=== PATIENT | male | born 1955 | race Caucasian/White ===

== ENCOUNTER 2023-06-04 05:46 | Inpatient (IN) | payer MEDICARE, SELFPAY ==
[2023-05-30 16:03] LABS: BASOPHILS % (AUTO) 0.3 % (0-1); EOSINOPHILS # (AUTO) 0.1 X10'3 (0-0.9); EOSINOPHILS % (AUTO) 1.2 % (0-6); LYMPHOCYTES # (AUTO) 0.7 X10'3 (1.1-4.8); LYMPHOCYTES % (AUTO) 9.7 % (21-51); MEAN CORPUSCULAR HEMOGLOBIN 30.9 PG (27.0-31.0); MEAN CORPUSCULAR HGB CONC 33.7 g/dL (33.0-36.5); MEAN CORPUSCULAR VOLUME 91.8 FL (78-98); MEAN PLATELET VOLUME 7.2 FL (7.4-10.4); MONOCYTES # (AUTO) 0.5 X10'3 (0-0.9); MONOCYTES % (AUTO) 6.9 % (2-12); NEUTROPHILS # (AUTO) 5.6 X10'3 (1.8-7.7); NEUTROPHILS % (AUTO) 81.9 % (42-75); PRE OP HEMATOCRIT 46.7 % (42.0-52.0); PRE OP HEMOGLOBIN 15.7 g/dL (14.0-17.9); PRE OP PLATELET COUNT 227 X10'3 (140-440); PRE OP WHITE BLOOD COUNT 6.8 10'3 (4.8-10.8); RED BLOOD COUNT 5.09 X10'6 (4.70-6.10); RED CELL DISTRIBUTION WIDTH 13.2 % (11.5-14.5)
[2023-05-30 16:17] LABS: ALBUMIN 3.6 G/DL (3.4-5.0); ALKALINE PHOSPHATASE 69 IU/L (46-116); BLOOD UREA NITROGEN 20 MG/DL (7-18); BUN/CREATININE RATIO 19.4 (10.0-20.0); CALCIUM 8.8 MG/DL (8.5-10.1); CHLORIDE 105 MMOL/L (99-107); CREATININE 1.03 MG/DL (0.60-1.10); PRE OP ALT 34 U/L (30-65); PRE OP ANION GAP 8 (8-16); PRE OP AST 15 U/L (10-37); PRE OP BILIRUB, TOTAL 0.3 MG/DL (0.0-1.0); PRE OP GLUCOSE 93 MG/DL (70-104); PRE OP POTASSIUM 3.8 MMOL/L (3.4-5.1); PRE OP SODIUM 140 MMOL/L (135-145); TOTAL CARBON DIOXIDE 27.5 MMOL/L (24-32); TOTAL PROTEIN 7.1 G/DL (6.4-8.2); eGFR 72 ML/MIN
[2023-06-04] VITALS (17 sets, daily range): BP systolic 105–141; BP diastolic 72–88; PULSE 53–122; RESP 12–21; TEMP 96.9–98.2; O2SAT 88–98
[~2023-06-04] VITALS: Ht 180.3 cm; Wt 95.3 kg
[~2023-06-04 05:46] MED LIST: DICL75TA5 PO; FLO0.4C PO; LISI1TAB53 PO; PANT-47 PO; ROSU10TA28 PO
[2023-06-04] MEDS: famotidine 20mg tablet PO ONE (06:19)
[2023-06-04] MEDS: ringers solution, lacted 1,000 ML IV SCH ×2 (06:19→11:09)
[2023-06-04] MEDS: vancomycin 1,500 MG in NS 300ml IV soln IV ONE (06:20)
[2023-06-04] MEDS: cefazolin 2gm/D5W 100mL 100 ML IV ONE (06:20)
[2023-06-04] MEDS ORDERED: ketorolac trometh. 30mg/ml inj. ONE (07:10)
[2023-06-04] MEDS ORDERED: MIDAZolam 5mg/ml 2ml vial ONE (07:13)
[2023-06-04] MEDS ORDERED: fentaNYL/PF 50MCG/1 ML 2ML syringe ONE ×2 (07:13→08:48)
[2023-06-04] MEDS ORDERED: dexamethasone sod phosphate 4mg/ml inj. ONE (07:14)
[2023-06-04] MEDS ORDERED: ROPIVAcaine 0.5% (5mg/ml) 30ml vial ONE (07:14)
[2023-06-04] MEDS ORDERED: propofol inj 20 ML IV ONE (07:14)
[2023-06-04] MEDS ORDERED: acetaminophen 1,000mg/100ml IV 100 ML IV ONE (07:14)
[2023-06-04] MEDS ORDERED: ondansetron/PF 4mg/2ml inj ONE (07:14)
[2023-06-04] MEDS ORDERED: LIDOcaine 2% (20mg/ml) 5ml vial ONE (07:14)
[2023-06-04] MEDS ORDERED: desflurane 240ml liquid inh. IH ONE (07:25)
[2023-06-04] MEDS ORDERED: ePHEDrine 50MG/ML INJ. ONE (08:03)
[2023-06-04] MEDS: ROPIVAcaine 0.5% (5mg/ml) 30ml vial ONE (08:13)
[2023-06-04] MEDS ORDERED: enalaprilat dihydrate 2.5mg/2ml vial IV PRN (08:25)
[2023-06-04] MEDS ORDERED: morphine 2 MG/ML inj. syringe IV PRN (08:25)
[2023-06-04] MEDS ORDERED: fentaNYL/PF 50MCG/1 ML 2ML syringe IV PRN ×2 (08:25)
[2023-06-04] MEDS ORDERED: ondansetron/PF 4mg/2ml inj IV PRN ×2 (08:25→09:40)
[2023-06-04] MEDS ORDERED: hydrALAZINE 20mg/ml inj. IV PRN (08:25)
[2023-06-04] MEDS ORDERED: ROPIVAcaine 0.2% (10 MG/5 ML) BOLUS INJECTION INTERSCALE PRN (08:25)
[2023-06-04] MEDS ORDERED: morphine 4 MG/ML inj SYRINge IV PRN (08:25)
[2023-06-04] MEDS ORDERED: HYDROmorphone 1 mg/ml syringe IV PRN (09:40)
[2023-06-04] MEDS ORDERED: acetaminophen 325mg tablet PO PRN (09:40)
[2023-06-04] MEDS ORDERED: diphenhydrAMINE 25mg capsule PO PRN ×2 (09:40)
[2023-06-04] MEDS ORDERED: HYDROmorphone inj. 0.5 MG/0.5 ML DISP.SYRIN IV PRN (09:40)
[2023-06-04] MEDS ORDERED: oxyCODONE IR 5mg (immed. release) tablet PO PRN (09:40)
[2023-06-04] MEDS ORDERED: magnesium hydroxide 30ml (MOM) UD suspension PO PRN (09:40)
[2023-06-04] MEDS ORDERED: bisacodyl 10mg suppository rectal RC PRN (09:40)
[2023-06-04] MEDS: ROPIVAcaine 0.2%/PF PUMP/bolus 545 ML INTERSCALE SCH (10:05)
[2023-06-04] MEDS: tranexamic acid 650mg tablet PO ONE (11:08)
[2023-06-04] MEDS: potassium cl 20mEq in 1/2 NS 1,000 ML IV SCH (11:09)
[2023-06-04] MEDS ORDERED: acetaminophen 325mg tablet PO SCH (14:00)
[2023-06-04] MEDS: ceFAZolin/D5W- 1GM premix 50 ML IV SCH (15:45)
[2023-06-04] MEDS ORDERED: non-formulary drug (Diclofenac Sodium 1 TAB) PO SCH (20:00)
[2023-06-04] MEDS: vancomycin/NS 1 GM ADD-VANTAGE 250 ML IV SCH (20:44)
[2023-06-04] MEDS: sennosides 8.6mg tablet PO SCH (20:44)
[2023-06-04] MEDS: atorvastatin 20mg tablet PO SCH (20:44)
[2023-06-05] VITALS: BP 135/75; PULSE 78; RESP 18; TEMP 97.7; O2SAT 96
[2023-06-05 06:00] VITALS: BP_SYST 156; PULSE 74; RESP 18; TEMP 98.8; O2SAT 95
[2023-06-05 06:23] LABS: BASOPHILS % (AUTO) 0.1 % (0-1); EOSINOPHILS % (AUTO) 0.2 % (0-6); HEMATOCRIT 43.1 % (42.0-52.0); HEMOGLOBIN 14.5 g/dl (14.0-17.9); LYMPHOCYTES # (AUTO) 0.7 X10'3 (1.1-4.8); LYMPHOCYTES % (AUTO) 5.8 % (21-51); MEAN CORPUSCULAR HEMOGLOBIN 30.8 PG (27.0-31.0); MEAN CORPUSCULAR HGB CONC 33.6 g/dL (33.0-36.5); MEAN CORPUSCULAR VOLUME 91.7 FL (78-98); MEAN PLATELET VOLUME 7.4 FL (7.4-10.4); MONOCYTES % (AUTO) 8.5 % (2-12); NEUTROPHILS # (AUTO) 9.7 X10'3 (1.8-7.7); NEUTROPHILS % (AUTO) 85.4 % (42-75); PLATELET COUNT 244 X10'3 (140-440); RED CELL DISTRIBUTION WIDTH 13.5 % (11.5-14.5); WHITE BLOOD COUNT 11.3 X10'3 (4.5-11.0)
[2023-06-05] MEDS: oxyCODONE IR 5mg (immed. release) tablet PO PRN (06:26)
[2023-06-05 06:38] LABS: ANION GAP 7 (8-16); CHLORIDE 102 MMOL/L (99-107); POTASSIUM 4.1 MMOL/L (3.5-5.1); SODIUM 135 MMOL/L (135-145); TOTAL CARBON DIOXIDE 26.1 MMOL/L (24-32)
[2023-06-05 08:00] VITALS: RESP 16; O2SAT 95
[2023-06-05] MEDS: aspirin 325mg tablet PO SCH (08:22)
[2023-06-05 08:23] VITALS: BP_SYST 156; PULSE 74
[2023-06-05] MEDS: lisinopril 20mg tablet PO SCH (08:23)
[2023-06-05] MEDS: celeCOXIB 100mg capsule PO SCH (08:23)
[2023-06-05] MEDS: tamsulosin 0.4mg capsule PO SCH (08:23)
[2023-06-05] MEDS: HYDROchlorothiazide 25mg tablet PO SCH (08:24)
[2023-06-05] MEDS: pantoprazole 40mg Tablet.DR PO SCH (08:24)
[2023-06-05] MEDS ORDERED: celeCOXIB 100mg capsule PO SCH (20:00)
[2023-06-06] MEDS ORDERED: acetaminophen 325mg tablet PO PRN (13:15)
== END 2023-06-05 10:00 | disposition home or self-care (01) | DRG 483 ==
LOC: PAS IN 05:46 → ORTHO 4S 10:58
PROVIDERS: ADMIT Orthopaedic Surgery; ATTEND Orthopaedic Surgery
PROC: 0LS40ZZ Reposition Left Upper Arm Tendon, Open Approach (ICD-10-PCS; 2023-06-04)
PROC: 3E0T3BZ Introduction of Anesthetic Agent into Peripheral Nerves and Plexi, Percutaneous Approach (ICD-10-PCS; 2023-06-04)
PROC: 3E0T33Z Introduction of Anti-inflammatory into Peripheral Nerves and Plexi, Percutaneous Approach (ICD-10-PCS; 2023-06-04)
PROC: 0RRK00Z Replacement of Left Shoulder Joint with Reverse Ball and Socket Synthetic Substitute, Open Approach (ICD-10-PCS; principal; 2023-06-04 07:25)
DX: M19.012 Primary osteoarthritis, left shoulder (principal); M65.812 Other synovitis and tenosynovitis, left shoulder; M75.102 Unspecified rotator cuff tear or rupture of left shoulder, not specified as traumatic; K21.9 Gastro-esophageal reflux disease without esophagitis; N40.0 Benign prostatic hyperplasia without lower urinary tract symptoms; I10 Essential (primary) hypertension; Z79.899 Other long term (current) drug therapy
CPT/HCPCS: 36415; 73020; 80051; 80053; 82948; 85025; 87081; 97110; 97161; 97530; A4565; A4615; A4618; A7000; C1776; G0378; J0131; J0690; J1100; J1885; J2250; J2405; J2704; J2795; J3010; J3370; J3480; J3490; J7120